=== PATIENT | male | born 1990 | race Hispanic/Latino ===

== ENCOUNTER 2016-08-07 01:43 | Emergency (ER) | payer MEDICAID ==
[2016-08-07 01:50] VITALS: BP 163/98; PULSE 75; RESP 17; TEMP 98.1; O2SAT 99
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
[2016-08-07] MEDS ORDERED: Lidocaine 2% Inj (20ml) ONE (02:27)
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
== END 2016-08-07 06:41 | disposition home or self-care (01) ==
LOC: H.ER 01:43
DX: S09.90XA Unspecified injury of head, initial encounter (principal); S01.511A Laceration without foreign body of lip, initial encounter; Y04.0XXA Assault by unarmed brawl or fight, initial encounter; Y92.89 Other specified places as the place of occurrence of the external cause